=== PATIENT | male | born 1975 | race Two or more races ===

== ENCOUNTER 2019-06-04 14:40 | Emergency (ER) | payer SELFPAY ==
[~2019-06-04] VITALS: Ht 165.1 cm; Wt 77.0 kg
[2019-06-04] MEDS ORDERED: BACITRACIN ZINC OINT UDPKT TOP ONE (18:15)
[2019-06-04] MEDS ORDERED: TETANUS, DIPHTHERIA, PERTUSSIS VAC/PF 0.5ML (>7YR OLD) IM ONE (18:15)
[2019-06-04] MEDS ORDERED: LIDOCAINE HCL/PF 1% 10 MG/ML 5ML VIAL IJ ONE (18:15)
[2019-06-04 20:23] VITALS: BP 107/64
== END 2019-06-04 20:25 | disposition home or self-care (01) ==
LOC: ER 14:40
DX: S91.011A Laceration without foreign body, right ankle, initial encounter (principal); S81.012A Laceration without foreign body, left knee, initial encounter; W13.2XXA Fall from, out of or through roof, initial encounter; Y93.89 Activity, other specified; Y92.89 Other specified places as the place of occurrence of the external cause; Y99.8 Other external cause status
CPT/HCPCS: 73610; 90471; 90715; 99283; J3490